=== PATIENT | female | born 1960 ===

== ENCOUNTER → 2017-10-09 | Outpatient (CLI) | payer OTHER | END | disposition home or self-care (01) | LOC: LAB 07:21 | DX: Z13.1 Encounter for screening for diabetes mellitus (principal); Z13.6 Encounter for screening for cardiovascular disorders; Z13.29 Encounter for screening for other suspected endocrine disorder; E03.8 Other specified hypothyroidism; Z11.2 Encounter for screening for other bacterial diseases; R73.01 Impaired fasting glucose ==

== ENCOUNTER 2017-10-13 10:40 | Outpatient (CLI) | payer OTHER | END 2017-10-13 10:54 | disposition home or self-care (01) | LOC: LAB 10:40 | DX: E03.8 Other specified hypothyroidism (principal); R73.01 Impaired fasting glucose; Z13.1 Encounter for screening for diabetes mellitus; Z13.6 Encounter for screening for cardiovascular disorders; Z13.29 Encounter for screening for other suspected endocrine disorder; Z11.1 Encounter for screening for respiratory tuberculosis ==

== ENCOUNTER 2017-11-11 08:51 | Outpatient (CLI) | payer OTHER | END 2017-11-11 09:08 | disposition home or self-care (01) | LOC: LAB 08:51 | DX: E55.9 Vitamin D deficiency, unspecified (principal) ==

== ENCOUNTER 2019-03-19 05:13 | Emergency (ER) | payer OTHER ==
[~2019-03-19] VITALS: Ht 154.9 cm; Wt 49.9 kg
[2019-03-19] MEDS ORDERED: OSEL75CA PO (08:53)
[2019-03-19] MEDS ORDERED: PROMETH-CODEIN 65 ML PO (08:54)
[2019-03-19] MEDS ORDERED: TESSALON PERLE100 MG PO (08:54)
[2019-03-19] MEDS ORDERED: XOFLUZA40 MG PO (08:59)
== END 2019-03-19 09:13 | disposition home or self-care (01) ==
LOC: ER 05:13
DX: J11.1 Influenza due to unidentified influenza virus with other respiratory manifestations (principal); R50.9 Fever, unspecified

== ENCOUNTER 2019-03-22 04:43 | Emergency (ER) | payer OTHER ==
[~2019-03-22] VITALS: Ht 154.9 cm; Wt 49.9 kg
[~2019-03-22 04:43] MED LIST: OSEL75CA PO; PROMETH-CODEIN 65 ML PO; TESSALON PERLE100 MG PO; XOFLUZA40 MG PO
[2019-03-22] MEDS ORDERED: ZYNCOF 20-400120 ML PO (07:12)
== END 2019-03-22 07:33 | disposition home or self-care (01) ==
LOC: ER 04:43
DX: J11.1 Influenza due to unidentified influenza virus with other respiratory manifestations (principal)